=== PATIENT | male | born 1955 | race African-American/Black ===

== ENCOUNTER 2018-10-17 01:49 | Emergency (ER) | payer OTHER ==
[2018-10-17 03:06] LABS: Absolute Lymphocytes (CBC) 2.1 K/uL (0.7-4.9); Absolute Monocytes 0.5 K/uL (0.1-1.3); Absolute Neutrophil 3.3 K/uL (1.8-8.0); Basophils % 0.4 % (0-1.3); Eosinophils % 2.3 % (0-4.4); Hematocrit 49.1 % (39.6-49.0); Lymphocytes % 34.3 % (15.3-44.8); MPV 8.3 fL (7.6-11.3); Monocytes % 8.5 % (3.3-12.3); RBC Red Blood Cell Count 5.49 M/uL (4.33-5.43)
[2018-10-17 03:17] LABS: Bilirubin Direct 0.1 mg/dL (0-0.2); Bilirubin Total 0.5 mg/dL (0.2-1.0); Magnesium 2.5 mg/dL (1.8-2.4); Potassium 3.6 mmol/L (3.5-5.1); Protein, Total 7.8 g/dL (6.4-8.2)
--- NOTE | 2018-10-17 03:40 | ER ---
Nurse's Notes [facility] Name: Apolinar Shi Age: 63 yrs Sex: Male : 1955 Arrival Date: 10/17/2018 Time: 01:51 Bed 8 Private MD: Diagnosis: Syncope and collapse Presentation: 10/17 01:57 Presenting complaint: EMS states: pt went to get up from a chair and suddenly became aa1 dizzy and began to fall. Coworkers report pt grabbed onto the chair and was able to lower himself to a seated position without falling. Pt reports he felt very strange for about 4-5 mins after the incident occurred but feels back to his normal self at this time. Transition of care: patient was not received from another setting of care. Onset of symptoms was October 17, 2018. Risk Assessment: Do you want to hurt yourself or someone else? Patient reports no desire to harm self or others. Initial Sepsis Screen: Does the patient meet any 2 criteria? No. Patient's initial sepsis screen is negative. Does the patient have a suspected source of infection? No. Patient's initial sepsis screen is negative. Care prior to arrival: IV initiated. 20 GA, in the left antecubital area, Glucose check: 98. 01:57 Method Of Arrival: EMS: [facility] aa1 01:57 Acuity: PRIYANKA 3 aa1 Historical: - Allergies: 02:00 No Known Allergies; aa1 - Home Meds: 02:00 unknown BP med [Active]; aa1 - PMHx: 02:00 Hypertension; aa1 - PSHx: 02:00 Knee surgery; ROTATOR CUFF SURGERY; NECK SURGERY; aa1 - Immunization history:: Flu vaccine is not up to date. - Social history:: Smoking status: Patient/guardian denies using tobacco. - Ebola Screening: : No symptoms or risks identified at this time. - Family history:: pertinent for hypertension. - Hospitalizations: : No recent hospitalization is reported. Screenin:01 Abuse screen: Denies threats or abuse. Denies injuries from another. Nutritional aa1 screening: No deficits noted. Tuberculosis screening: No symptoms or risk factors identified. Fall Risk None identified. Assessment: 02:01 General: Appears in no apparent distress. comfortable, Behavior is calm, cooperative, aa1 appropriate for age. Pain: Denies pain. Neuro: Level of Consciousness is awake, alert, obeys commands, Oriented to person, place, time, situation, Moves all extremities. Full function Speech is normal, Facial symmetry appears normal, Pupils are PERRLA, Denies weakness blurred vision dizziness, numbness headache diplopia. Cardiovascular: Denies chest pain, diaphoresis, palpitations, shortness of breath, Heart tones S1 S2 present Rhythm is regular. Respiratory: Airway is patent Respiratory effort is even, unlabored, Respiratory pattern is regular, symmetrical. GI: No signs and/or symptoms were reported involving the gastrointestinal system. : No signs and/or symptoms were reported regarding the genitourinary system. EENT: No signs and/or symptoms were reported regarding the EENT system. Derm: Skin is intact, is healthy with good turgor, Skin is pink, warm \T\ dry. Musculoskeletal: Circulation, motion, and sensation intact. Capillary refill < 3 seconds. 03:49 Reassessment: Patient appears in no apparent distress at this time. Patient is alert, aa1 oriented x 3, equal unlabored respirations, skin warm/dry/pink. Discussed d/c \T\ f/u instructions with pt; denies questions or concerns at this time. Ambulatory to lobby with steady gait Patient denies pain at this time. Patient states feeling better. Vital Signs: 02:00 BP 158 / 95; Pulse 70; Resp 16; Temp 97.9; Pulse Ox 96% on R/A; Weight 106.59 kg; aa1 Height 6 ft. 1 in. (185.42 cm); Pain 0/10; 03:49 BP 107 / 85; Pulse 82; Resp 16; Temp 98.0; Pulse Ox 100% on R/A; Pain 0/10; aa1 02:00 Body Mass Index 31.00 (106.59 kg, 185.42 cm) aa1 ED Course: 01:51 Patient arrived in ED. ds1 01:56 Lauren Watson RN is Primary Nurse. aa1 01:59 Triage completed. aa1 02:00 Arm band placed on right wrist. aa1 02:01 Patient has correct armband on for positive identification. Bed in low position. Call aa1 light in reach. Pulse ox on. NIBP on. 02:01 Maintain EMS IV. Dressing intact. Site clean \T\ dry. Gauge \T\ site: 20g LAC. aa 1 02:14 Jericho Hinojosa MD is Attending Physician. wa 03:39 Wiley Conley MD is Referral Physician. wa 03:49 No provider procedures requiring assistance completed. IV discontinued, intact, aa1 bleeding controlled, No redness/swelling at site. Pressure dressing applied. Administered Medications: No medications were administered Outcome: 03:39 Discharge ordered by . wa 03:49 Discharged to home ambulatory. aa1 03:49 Condition: good 03:49 Discharge instructions given to patient, Instructed on discharge instructions, follow up and referral plans. Demonstrated understanding of instructions, follow-up care. 03:50 Patient left the ED. aa1 Signatures: Lauren Watson RN RN aa1 Karyn Paula ds1 Jericho Hinojosa MD MD oh
--- NOTE | 2018-10-17 03:40 | EDPHYS ---
Physician Documentation [facility] Name: Apolinar Shi Age: 63 yrs Sex: Male : 1955 Arrival Date: 10/17/2018 Time: 01:51 Bed 8 Private MD: ED Physician Jericho Hinojosa HPI: 10/17 03:27 This 63 yrs old Black Male presents to ER via EMS with complaints of Syncope. wa 03:27 The patient has experienced near-syncope, almost passed out. Onset: The mi symptoms/episode began/occurred just prior to arrival. Duration: This was a single episode, that lasted 10 second(s). Context: the episode(s) was witnessed, by co-worker(s), occurred at work, occurred while the patient was attempting to stand. Just prior to the episode the patient experienced dizziness. Associated injury: The patient did not suffer any apparent associated injury. Associated signs and symptoms: Pertinent positives: dizziness, lightheadedness, Pertinent negatives: abdominal pain, ataxia, blurred vision, chest pain, combativeness, confusion, diaphoresis, diarrhea, headache, nausea, numbness, palpitations, seizure, shortness of breath, tingling, vertigo, vomiting, weakness. Current symptoms: Currently, the patient is not experiencing any symptoms. The patient has not experienced similar symptoms in the past. The patient has not recently seen a physician. states was sitting at his job and proceeded to rise. felt lightheaded as it about to pass out. was able to lower self onto chair without falling. states felt strange for about 4-5 minutes after the episode. denies complaints at this time. denies preceding headache, blurry vision, chest pain, palpitations, SOB. states feels back to self at this time. h/o HTN. Historical: - Allergies: 02:00 No Known Allergies; aa1 - Home Meds: 02:00 unknown BP med [Active]; aa1 - PMHx: 02:00 Hypertension; aa1 - PSHx: 02:00 Knee surgery; ROTATOR CUFF SURGERY; NECK SURGERY; aa1 - Immunization history:: Flu vaccine is not up to date. - Social history:: Smoking status: Patient/guardian denies using tobacco. - Ebola Screening: : No symptoms or risks identified at this time. - Family history:: pertinent for hypertension. - Hospitalizations: : No recent hospitalization is reported. ROS: 03:33 Constitutional: Negative for fever, chills, and weight loss, Eyes: Negative for injury, wa pain, redness, and discharge, ENT: Negative for injury, pain, and discharge, Neck: Negative for injury, pain, and swelling, Cardiovascular: Negative for chest pain, palpitations, and edema, Respiratory: Negative for shortness of breath, cough, wheezing, and pleuritic chest pain, Abdomen/GI: Negative for abdominal pain, nausea, vomiting, diarrhea, and constipation, Back: Negative for injury and pain, MS/Extremity: Negative for injury and deformity, Skin: Negative for injury, rash, and discoloration, Psych: Negative for depression, anxiety, suicide ideation, homicidal ideation, and hallucinations. 03:33 Neuro: Positive for dizziness, near syncope, Negative for altered mental status, visual changes, weakness. 03:33 All other systems are negative. Exam: 03:33 Abdomen/GI: Inspection: abdomen appears normal, Bowel sounds: normal, Palpation: mi abdomen is soft and non-tender. 03:33 Head/Face: Normocephalic, atraumatic. Eyes: Pupils equal round and reactive to light, extra-ocular motions intact. Lids and lashes normal. Conjunctiva and sclera are non-icteric and not injected. Cornea within normal limits. Periorbital areas with no swelling, redness, or edema. ENT: Nares patent. No nasal discharge, no septal abnormalities noted. Tympanic membranes are normal and external auditory canals are clear. Oropharynx with no redness, swelling, or masses, exudates, or evidence of obstruction, uvula midline. Mucous membranes moist. Neck: Trachea midline, no thyromegaly or masses palpated, and no cervical lymphadenopathy. Supple, full range of motion without nuchal rigidity, or vertebral point tenderness. No Meningismus. Chest/axilla: Normal chest wall appearance and motion. Nontender with no deformity. No lesions are appreciated. Cardiovascular: Regular rate and rhythm with a normal S1 and S2. No gallops, murmurs, or rubs. Normal PMI, no JVD. No pulse deficits. Respiratory: Lungs have equal breath sounds bilaterally, clear to auscultation and percussion. No rales, rhonchi or wheezes noted. No increased work of breathing, no retractions or nasal flaring. Abdomen/GI: Soft, non-tender, with normal bowel sounds. No distension or tympany. No guarding or rebound. No evidence of tenderness throughout. Back: No spinal tenderness. No costovertebral tenderness. Full range of motion. Skin: Warm, dry with normal turgor. Normal color with no rashes, no lesions, and no evidence of cellulitis. MS/ Extremity: Pulses equal, no cyanosis. Neurovascular intact. Full, normal range of motion. Psych: Awake, alert, with orientation to person, place and time. Behavior, mood, and affect are within normal limits. 03:33 Neuro: Orientation: is normal, Mentation: is normal, Cranial nerves: grossly normal, Cerebellar function: is grossly normal, Motor: is normal, Sensation: is normal, Gait: is steady. Vital Signs: 02:00 BP 158 / 95; Pulse 70; Resp 16; Temp 97.9; Pulse Ox 96% on R/A; Weight 106.59 kg; aa1 Height 6 ft. 1 in. (185.42 cm); Pain 0/10; 03:49 BP 107 / 85; Pulse 82; Resp 16; Temp 98.0; Pulse Ox 100% on R/A; Pain 0/10; aa1 02:00 Body Mass Index 31.00 (106.59 kg, 185.42 cm) aa1 MDM: 02:16 Patient medically screened. wa 03:34 Differential Diagnosis: cardiac arrhythmia, idiopathic syncope, vasovagal episode. Data wa reviewed: vital signs, nurses notes, EMS record, lab test result(s), EKG. Test interpretation: by ED physician or midlevel provider: EKG: HR 69. nml sinus. nml axis. incomplete non-specific interventricular delay. . 03:36 Test interpretation: by ED physician or midlevel provider: labs noted within nml wa limits. . Response to treatment: the patient's symptoms have markedly improved after treatment. ED course: asymptomatic in ED. observe for over and hour. no acute complaints. will not admit as no concerning findings noted at this time. will advise immediate return to ED for reoccurrence or other new and worrisome concerns. 10/17 02:27 Order name: Basic Metabolic Panel mi 10/17 02:27 Order name: CBC with Diff; Complete Time: 03:36 mi 10/17 02:27 Order name: LFT's; Complete Time: 03:36 mi 10/17 02:27 Order name: Magnesium; Complete Time: 03:36 mi 10/17 02:27 Order name: EKG; Complete Time: 02:29 mi 10/17 02:28 Order name: Basic Metabolic Panel; Complete Time: 03:36 EDTX 10/17 02:27 Order name: Cardiac monitoring; Complete Time: 02:29 mi 10/17 02:27 Order name: EKG - Nurse/Tech; Complete Time: 02:46 mi 10/17 02:27 Order name: IV Saline Lock; Complete Time: 02:29 mi 10/17 02:27 Order name: Labs collected and sent; Complete Time: 02:46 mi 10/17 02:27 Order name: O2 Sat Monitoring; Complete Time: 02: mi Administered Medications: No medications were administered Disposition: 10/17/18 03:39 Discharged to Home. Impression: Syncope and collapse. - Condition is Stable. - Discharge Instructions: Near-Syncope, [id number], Syncope, [id number]. - Medication Reconciliation Form, Thank You Letter, Antibiotic Education, Prescription Opioid Use form. - Follow up: Wiley Conley MD; When: 1 - 2 days; Reason: Recheck today's complaints. - Problem is new. - Symptoms have improved. - Notes: see the neurologist as discussed for further evaluation. return emergently to ER if this happens to you again or you have any new and worrisome concerns Signatures: Dispatcher [employer] [facility] Lauren Watson RN RN aa1 Jericho Hinojosa MD MD mi Corrections: (The following items were deleted from the chart) 03:50 03:39 10/17/2018 03:39 Discharged to Home. Impression: Syncope and collapse. Condition aa1 is Stable. Forms are Medication Reconciliation Form, Thank You Letter, Antibiotic Education, Prescription Opioid Use. Follow up: Wiley Conley; When: 1 - 2 days; Reason: Recheck today's complaints. Problem is new. Symptoms have improved. wa
--- NOTE | 2018-10-17 07:48 | EKG ---
Test Date: 2018-10-17 Test Time: 02:37:27 Service Mechanic: LINNEA MEASUREMENT RESULTS: Intervals: Rate: 69 MA: 170 QRSD: 94 QT: 398 QTc: 426 Odem: P: 11 MA: 170 QRS: 12 T: -11 INTERPRETIVE STATEMENTS: Normal sinus rhythm Cannot rule out Anterior infarct, age undetermined Abnormal ECG No previous ECG available for comparison Electronically Signed On 10-17-18 07:48:39 CDT by Cruz Tadeo
== END 2018-10-17 03:50 | disposition home or self-care (01) ==
LOC: ER 01:49
DX: R55 Syncope and collapse (principal); R42 Dizziness and giddiness; I10 Essential (primary) hypertension
CPT/HCPCS: 36415; 80048; 80076; 83735; 85025; 93005; 99283